=== PATIENT | female | born 1955 | race African-American/Black ===

== ENCOUNTER 2016-11-16 18:45 | Emergency (ER) | payer SELFPAY ==
[~2016-11-16] VITALS: Ht 160 cm; Wt 77.0 kg
[2016-11-16 18:59] VITALS: BP 158/89
== END 2016-11-16 22:30 | disposition left against medical advice (07) ==
LOC: ER 18:45
DX: R07.89 Other chest pain (principal); I10 Essential (primary) hypertension; Z88.8 Allergy status to other drugs, medicaments and biological substances
CPT/HCPCS: 93005; 99281

== ENCOUNTER 2020-08-15 00:16 | Emergency (ER) | payer MEDICARE, BC ==
[~2020-08-15] VITALS: Ht 160 cm; Wt 73.0 kg
[2020-08-15 00:25] VITALS: BP 179/83
== END 2020-08-15 03:18 | disposition left against medical advice (07) ==
LOC: ER 00:16
DX: I10 Essential (primary) hypertension (principal); Z53.21 Procedure and treatment not carried out due to patient leaving prior to being seen by health care provider
CPT/HCPCS: 93005

== ENCOUNTER 2024-06-20 02:41 | Emergency (ER) | payer BC, MEDICARE ==
[~2024-06-20] VITALS: Ht 160 cm; Wt 74.0 kg
[2024-06-20 02:56] VITALS: O2SAT 100
[2024-06-20 03:05] VITALS: BP 131/70; PULSE 77; RESP 18; TEMP 97.8; O2SAT 99
[2024-06-20 03:51] LABS: BASOPHILS % 0.2 % (0.0-2.0); EOSINOPHILS % 0.2 % (0.0-5.0); HEMATOCRIT. 43.3 % (36.0-48.0); LYMPHOCYTES % 6.2 % (20.0-50.0); MEAN CORPUSCULAR HEMOGLOBIN 30.3 pg (28.0-32.0); MEAN CORPUSCULAR HGB CONC 32.4 g/dL (31.0-37.0); MEAN CORPUSCULAR VOLUME 93.7 fL (81.0-99.0); MEAN PLATELET VOLUME 8.3 fl (7.4-10.4); MONOCYTES % 10.2 % (2.0-8.0); NEUTROPHILS % 83.2 % (40.0-76.0); PLATELET 287 x1000/uL (130-400); RED BLOOD CELL COUNT 4.62 mill/uL (4.2-5.4); RED CELL DISTRIBUTION WIDTH 13.4 % (11.6-14.6); WHITE BLOOD COUNT 14.2 x1000/uL (4.5-11.0)
[2024-06-20 03:52] LABS: CHLORIDE 101 mEq/L (98-107); POTASSIUM 3.3 mEq/L (3.5-5.1); SODIUM 139 mEq/L (136-145)
[2024-06-20 03:53] LABS: CALCIUM 9.9 mg/dL (8.7-10.4); CARBON DIOXIDE 29 mEq/L (21-32)
[2024-06-20 03:56] LABS: DIFFERENTIAL COMMENT 1
[2024-06-20 03:58] LABS: CREATININE 0.8 mg/dL (0.6-1.0); GLUCOSE 118 mg/dL (70-105); UREA NITROGEN BLOOD 10 mg/dL (9-23)
[2024-06-20 04:23] LABS: CLARITY URINE CLEAR (CLEAR); COLOR URINE YELLOW (YELLOW); GLUCOSE URINE NEGATIVE (NEGATIVE); KETONES URINE 2+ (NEGATIVE); LEUKOCYTE ESTERASE URINE NEGATIVE (NEGATIVE); NITRITE URINE NEGATIVE (NEGATIVE); OCCULT BLOOD URINE 2+ (NEGATIVE); PROTEIN URINE TRACE (NEGATIVE); SPECIFIC GRAVITY URINE 1.021 (1.005-1.030); UROBILINOGEN URINE 0.2 E.U./dL (0.2-1.0)
[2024-06-20 04:56] LABS: BACTERIA URINE TRACE; SQUAMOUS EPITHELIAL CELL URINE FEW /lpf (RARE/1+); WBC URINE NONE SEEN /hpf (0-2)
[2024-06-20] MEDS: METRONIDAZOLE 500 MG PREMIX 100 ML IV ONE (05:47)
== END 2024-06-20 07:36 | disposition left against medical advice (07) ==
LOC: ER 02:56
DX: K52.9 Noninfective gastroenteritis and colitis, unspecified (principal); I10 Essential (primary) hypertension; Z88.1 Allergy status to other antibiotic agents; Z90.10 Acquired absence of unspecified breast and nipple
CPT/HCPCS: 99285; 74176; 96365; 80048; 81003; 85025; 36415; J3490